=== PATIENT | female | born 1990 | race Two or more races ===

== ENCOUNTER 2024-03-09 10:23 | Emergency (ER) | payer OTHER ==
[~2024-03-09] VITALS: Ht 160 cm; Wt 61.7 kg
[~2024-03-09 10:23] MED LIST: DICLOFENAC SODI75 MG PO; NORFLEX100MG PO
[2024-03-09] MEDS ORDERED: MEPERIDINE HCL/PF 50 MG/ML VIAL IM ONE (11:45)
[2024-03-09 12:53] LABS: HEMATOCRIT 35.8 % (36.0-45.00); HEMOGLOBIN 12.1 g/dL (12.0-15.00); MEAN CELL VOLUME 89.2 fL (80.00-100.00); MEAN CORPUSCULAR HEMOGLOBIN 30.3 pg (27.00-32.0); PLATELET COUNT 269 K/uL (150-450); RED BLOOD COUNT 4.01 M/uL (4.00-6.00); RED CELL DISTRIBUTION WIDTH 14.8 % (11.5-14.5)
== END 2024-03-09 19:01 | disposition left against medical advice (07) ==
LOC: ER 10:25
PROVIDERS: General Practice
DX: O20.8 Other hemorrhage in early pregnancy (principal); Z3A.01 Less than 8 weeks gestation of pregnancy

== ENCOUNTER 2024-03-16 14:38 | Emergency (ER) | payer OTHER ==
[~2024-03-16] VITALS: Ht 160 cm; Wt 58.5 kg
[2024-03-16 19:03] LABS: HEMATOCRIT 37.2 % (36.0-45.00); HEMOGLOBIN 12.4 g/dL (12.0-15.00); MEAN CELL VOLUME 90.5 fL (80.00-100.00); MEAN CORPUSCULAR HEMOGLOBIN 30.3 pg (27.00-32.0); MEAN CORPUSCULAR HGB CONC 33.4 g/dl (32.0-36.0); PLATELET COUNT 327 K/uL (150-450); RED BLOOD COUNT 4.11 M/uL (4.00-6.00); RED CELL DISTRIBUTION WIDTH 14.2 % (11.5-14.5)
[2024-03-16] MEDS ORDERED: MECLIZINE HCL 25 MG TABLET PO ONE (22:00)
== END 2024-03-16 21:55 | disposition home or self-care (01) ==
LOC: ER 14:40
PROVIDERS: Preventive Medicine Public Health & General Preventive Medicine
DX: K52.89 Other specified noninfective gastroenteritis and colitis (principal); Z20.822 Contact with and (suspected) exposure to COVID-19

== ENCOUNTER 2024-08-22 18:40 | Emergency (ER) | payer OTHER ==
[~2024-08-22] VITALS: Ht 160 cm; Wt 59.0 kg
[2024-08-22 21:39] LABS: BASO % 0.9 % (0.1-1.2); EOS # 0.21 (0.04-0.54); EOS % 2.2 % (0.7-7.0); HEMATOCRIT 36.6 % (34.1-44.9); HEMOGLOBIN 12.1 g/dL (11.2-15.7); LYMPH # 4.23 (1.18-3.74); LYMPH % 45.1 % (19.3-53.1); MEAN CORPUSCULAR HEMOGLOBIN 28.8 pg (25.6-32.2); MONO # 0.56 (0.24-0.82); NEUT # 4.27 (1.56-6.13); NEUT % 45.6 % (34.0-71.1); PLATELET COUNT 348 K/uL (163-369); RED CELL DISTRIBUTION WIDTH 13.3 % (11.6-14.4)
[2024-08-22 22:32] LABS: ALBUMIN 4.2 gm/dL (3.4-5.0); BILIRUBIN TOTAL 1.31 mg/dL (0.3-1.2); CALCIUM 9.2 mg/dL (8.5-10.1); CREATININE SERUM 0.86 mg/dL (0.55-1.02); GFR 75.99; GLOBULINA 4.3 G/DL (2.4-3.5); POTASSIUM 4.19 mEq/L (3.5-5.1); TOTAL PROTEIN 8.5 gm/dL (6.4-8.2)
[2024-08-22] MEDS ORDERED: CIPROFLOX-DEXA7.5 ML OT (23:40)
[2024-08-22] MEDS ORDERED: IBUPROFEN600 MG PO (23:42)
== END 2024-08-22 23:49 | disposition home or self-care (01) ==
LOC: ER 18:52
PROVIDERS: Preventive Medicine Public Health & General Preventive Medicine
DX: H92.01 Otalgia, right ear (principal)